=== PATIENT | female | born 1980 | race Caucasian/White ===

== ENCOUNTER 2016-07-11 22:12 | Emergency (ER) | payer MEDICAID ==
[~2016-07-11] VITALS: Ht 154.9 cm; Wt 77.0 kg
[~2016-07-11 22:12] MED LIST: ALBU2SYR PO; ALBU6.7H IH; BECL8.7A6 INH
[2016-07-11] MEDS ORDERED: HYDROCODONE/ACETAMINOPHEN 5/325MG TABLET PO ONE (22:45)
[2016-07-11] MEDS ORDERED: IPRATROPIUM/ALBUTEROL 0.5-3(2.5)MG/3ML NEB HHN ONE (22:45)
[2016-07-11] MEDS ORDERED: SODIUM CHLORIDE 0.9% 500 ML IV ONE (22:55)
[2016-07-11] MEDS ORDERED: KETOROLAC 30MG/ML VIAL IV ONE (23:00)
[2016-07-12 00:04] LABS: CREATINE KINASE 183 IU/L (26-192); INDEX HEMOLYSI 1 (1-3); TROPONIN I < 0.02 ng/mL (0.00-0.04)
[2016-07-12 00:11] LABS: B-HCG QUANTITATIVE < 1 mIU/mL (<3)
[2016-07-12 00:25] LABS: BASOPHILS % 0.5 % (0.0-2.0); EOSINOPHILS % 1.5 % (0.0-5.0); HEMATOCRIT. 41.9 % (36.0-48.0); HEMOGLOBIN. 14.4 g/dL (12.0-16.0); LYMPHOCYTES % 7.5 % (20.0-50.0); MEAN CORPUSCULAR HEMOGLOBIN 31.3 pg (28.0-32.0); MEAN CORPUSCULAR HGB CONC 34.3 g/dL (31.0-37.0); MEAN CORPUSCULAR VOLUME 91.3 fL (81.0-99.0); MEAN PLATELET VOLUME 7.3 fl (7.4-10.4); MONOCYTES % 7.1 % (2.0-8.0); NEUTROPHILS % 83.4 % (40.0-76.0); PLATELET 330 x1000/uL (130-400); RED BLOOD CELL COUNT 4.59 mill/uL (4.2-5.4); RED CELL DISTRIBUTION WIDTH 12.7 % (11.6-14.6); WHITE BLOOD COUNT 11.8 x1000/uL (4.5-11.0)
[2016-07-12 00:40] LABS: ALANINE AMINOTRANSFERASE 31 IU/L (13-61); ALBUMIN 3.7 g/dL (3.4-5.0); ANION GAP 14; CALCIUM 8.2 mg/dL (8.5-10.1); CARBON DIOXIDE 21 mEq/L (21-32); CHLORIDE 109 mEq/L (98-107); INDEX HEMOLYSI 1 (1-3); INDEX ICTERIC 1 (1-4); INDEX LIPEMIC 1 (1-3); UREA NITROGEN BLOOD 13 mg/dL (7-21); eGFR > 60 mL/min (>60)
[2016-07-12 00:44] LABS: CLARITY URINE CLOUDY (CLEAR); COLOR URINE DARK YELLOW (YELLOW); GLUCOSE URINE NEGATIVE (NEGATIVE); KETONES URINE 3+ (NEGATIVE); LEUKOCYTE ESTERASE URINE NEGATIVE (NEGATIVE); NITRITE URINE NEGATIVE (NEGATIVE); OCCULT BLOOD URINE 2+ (NEGATIVE); PH URINE 5.5 (4.5-8.0); PROTEIN URINE 1+ (NEGATIVE); SPECIFIC GRAVITY URINE 1.041 (1.005-1.030)
[2016-07-12] MEDS ORDERED: ONDANSETRON HCL 4MG/2ML VIAL IV ONE (01:15)
[2016-07-12] MEDS ORDERED: MORPHINE SULFATE 4 MG/ML CPJ (NOT FOR IM USE) IV ONE (01:15)
[2016-07-12] MEDS ORDERED: HYDROCODONE/ACETAMINOPHEN 10/325MG TABLET PO ONE (03:45)
[2016-07-12] MEDS ORDERED: DEXAMETHASONE 10MG/ML 1ML VIAL IV ONE (03:45)
[2016-07-12 03:47] LABS: SQUAMOUS EPITHELIAL CELL URINE 1+ /lpf (RARE/1+)
[2016-07-12 03:48] LABS: WBC URINE 0-2 /hpf (0-2)
[2016-07-12 03:49] LABS: CREATINE KINASE 205 IU/L (26-192); INDEX HEMOLYSI 1 (1-3)
[2016-07-12 03:49] LABS: BACTERIA URINE TRACE
[2016-07-12 05:31] VITALS: BP 111/64
== END 2016-07-12 05:34 | disposition home or self-care (01) ==
LOC: ER 22:13
DX: T79.6XXA Traumatic ischemia of muscle, initial encounter (principal); S86.911A Strain of unspecified muscle(s) and tendon(s) at lower leg level, right leg, initial encounter; J45.909 Unspecified asthma, uncomplicated; Z90.49 Acquired absence of other specified parts of digestive tract; X58.XXXA Exposure to other specified factors, initial encounter; Y93.89 Activity, other specified; Y99.8 Other external cause status; Y92.89 Other specified places as the place of occurrence of the external cause
CPT/HCPCS: 36415; 73562; 80053; 81001; 82550; 84484; 84702; 85025; 93971; 94640; 96361; 96374; 96375; 99285; J1100; J1885; J2270; J2405; J7040; L1830; Z7610; J7620

== ENCOUNTER 2025-02-15 04:18 | Inpatient (IN) | payer MEDICAID ==
[~2025-02-15] VITALS: Ht 154.9 cm; Wt 83.9 kg
[~2025-02-15 04:18] MED LIST changes: +ALBU05 NEB; -ALBU2SYR PO; -ALBU6.7H IH; +ATOR10TA PO; -BECL8.7A6 INH; +FAMO20TA8 MT; +FLUT1DIS6 IH; +MONT-46 PO; +P20 PO
[2025-02-15 04:51] LABS: BASOPHILS % 0.6 % (0.0-2.0); EOSINOPHILS % 4.4 % (0.0-5.0); HEMATOCRIT. 42.3 % (36.0-48.0); HEMOGLOBIN. 14.0 g/dL (12.0-16.0); LYMPHOCYTES % 49.2 % (20.0-50.0); MEAN PLATELET VOLUME 7.4 fl (7.4-10.4); MONOCYTES % 6.0 % (2.0-8.0); NEUTROPHILS % 39.8 % (40.0-76.0); PLATELET 343 x1000/uL (130-400); RED BLOOD CELL COUNT 4.49 mill/uL (4.2-5.4); RED CELL DISTRIBUTION WIDTH 12.7 % (11.6-14.6)
[2025-02-15] MEDS: METHYLPREDNISOLONE SOD SUCC 125MG/2ML (ACT-O-VIAL) IV ONE (04:52)
[2025-02-15] MEDS: MAGNESIUM 2 G PREMIX 50 ML IV ONE (04:53)
[2025-02-15 05:03] LABS: CREATININE 0.7 mg/dL (0.6-1.0)
[2025-02-15 05:04] LABS: PROTEIN TOTAL 6.7 g/dL (6.0-8.3); TROPONIN I HIGH SENSITIVITY < 4 ng/L (3.0-34); UREA NITROGEN BLOOD 7 mg/dL (9-23)
[2025-02-15 05:05] LABS: ASPARTATE AMINOTRANSFERASE 18 IU/L (<34)
[2025-02-15 05:06] LABS: BILIRUBIN DIRECT < 0.1 mg/dL (<=3.0); BILIRUBIN TOTAL 0.4 mg/dL (0.1-1.0)
[2025-02-15 06:25] VITALS: PULSE 76; RESP 18; O2SAT 100
[2025-02-15] MEDS: ALBUTEROL (0.083%) 2.5MG/3ML NEB HHN SCH (06:25)
[2025-02-15] MEDS: IPRATROPIUM BROMIDE (0.02%) 0.5MG/2.5ML NEB HHN SCH (06:26)
[2025-02-15] MEDS ORDERED: MAGNESIUM/ALUMINUM HYDROXIDE/SIMETHICONE 30ML UDC PO PRN (09:00)
[2025-02-15] MEDS ORDERED: HYDROCODONE/ACETAMINOPHEN 5/325MG TABLET PO PRN (09:00)
[2025-02-15] MEDS ORDERED: CLONIDINE 0.1MG TABLET PO PRN (09:00)
[2025-02-15] MEDS ORDERED: ONDANSETRON HCL 4MG/2ML INJ IV PRN (09:00)
[2025-02-15] MEDS ORDERED: NALOXONE HCL 0.4MG/ML VIAL IV PRN (09:15)
[2025-02-15] MEDS: ENOXAPARIN 40MG/0.4ML SYR SUBCUT SCH (10:21)
[2025-02-15] MEDS: PANTOPRAZOLE SODIUM 40 MG/VIAL IV SCH (10:21)
[2025-02-15] MEDS: IPRATROPIUM/ALBUTEROL 0.5-3(2.5)MG/3ML NEB NEB SCH (10:32)
[2025-02-15 10:34] VITALS: PULSE 95; RESP 16; O2SAT 98
[2025-02-15] MEDS: METHYLPREDNISOLONE SOD SUCC 40MG/ML (ACT-O-VIAL) IV SCH (11:04)
[2025-02-15 13:00] VITALS: BP 139/85; PULSE 106; RESP 18; TEMP 37.2; TEMP 37.252; O2SAT 95
[2025-02-15] MEDS ORDERED: SEMA0.258 SUBCUT (14:21)
[2025-02-15 16:00] VITALS: BP 122/82; PULSE 108; RESP 20; TEMP 38.2; O2SAT 97
[2025-02-15] MEDS: ACETAMINOPHEN 325MG TABLET PO PRN (17:50)
[2025-02-15 18:32] LABS: *AMPHETAMINES SCREEN URINE NEGATIVE (NEGATIVE); *BARBITURATES SCREEN URINE NEGATIVE (NEGATIVE); *BENZODIAZEPINES SCREEN URINE NEGATIVE (NEGATIVE); *COCAINE SCREEN URINE NEGATIVE (NEGATIVE); CANNABINOID URINE SCREEN PRESUMPTIVE POSITIVE (NEGATIVE); ECSTASY MDMA SCREEN URINE NEGATIVE (NEGATIVE); METHADONE URINE SCREEN NEGATIVE (NEGATIVE); OPIATES URINE SCREEN NEGATIVE (NEGATIVE); PHENCYCLIDINE URINE SCREEN NEGATIVE (NEGATIVE)
[2025-02-15 19:00] LABS: TROPONIN I HIGH SENSITIVITY < 4 ng/L (3.0-34)
[2025-02-15 20:00] VITALS: BP 140/82; PULSE 106; RESP 20; TEMP 37.2; O2SAT 98
[2025-02-15 20:47] LABS: COLOR URINE YELLOW (YELLOW); GLUCOSE URINE 1+ (NEGATIVE); KETONES URINE TRACE (NEGATIVE); LEUKOCYTE ESTERASE URINE NEGATIVE (NEGATIVE); NITRITE URINE NEGATIVE (NEGATIVE); OCCULT BLOOD URINE 1+ (NEGATIVE); PH URINE 5.5 (4.5-8.0); PROTEIN URINE NEGATIVE (NEGATIVE); SPECIFIC GRAVITY URINE 1.024 (1.005-1.030); UROBILINOGEN URINE 0.2 E.U./dL (0.2-1.0)
[2025-02-15] MEDS ORDERED: ZOLPIDEM TARTRATE 5MG TABLET PO PRN (21:00)
[2025-02-15 21:11] LABS: CLARITY URINE SL HAZY (CLEAR)
[2025-02-15 21:12] LABS: BACTERIA URINE 1+; RBC URINE 0-2 /hpf (0-2); SQUAMOUS EPITHELIAL CELL URINE 1+ /lpf (RARE/1+); WBC URINE 0-2 /hpf (0-2)
[2025-02-16] VITALS (12 sets, daily range): BP systolic 106–139; BP diastolic 60–89; PULSE 82–106; RESP 16–20; TEMP 36.5–36.8; O2SAT 90–100
[2025-02-16 01:18] LABS: TROPONIN I HIGH SENSITIVITY < 4 ng/L (3.0-34)
[2025-02-16 10:56] LABS: HEMATOCRIT. 40.7 % (36.0-48.0); HEMOGLOBIN. 13.6 g/dL (12.0-16.0); MEAN PLATELET VOLUME 7.6 fl (7.4-10.4); PLATELET 397 x1000/uL (130-400); RED BLOOD CELL COUNT 4.35 mill/uL (4.2-5.4); RED CELL DISTRIBUTION WIDTH 13.1 % (11.6-14.6)
[2025-02-16 11:00] LABS: CREATININE 0.6 mg/dL (0.6-1.0); UREA NITROGEN BLOOD 7 mg/dL (9-23)
[2025-02-16] MEDS ORDERED: MONT-46 PO (17:49)
[2025-02-16] MEDS ORDERED: ALBU05 NEB (17:49)
[2025-02-16] MEDS ORDERED: ALBU18HF2 IH (17:49)
[2025-02-16] MEDS ORDERED: METH4TAB95 MT (17:49)
[2025-02-17] VITALS (12 sets, daily range): BP systolic 100–149; BP diastolic 51–94; PULSE 80–120; RESP 16–19; TEMP 36.3–36.9; O2SAT 95–99
[2025-02-17 07:47] LABS: CREATININE 0.7 mg/dL (0.6-1.0); UREA NITROGEN BLOOD 13 mg/dL (9-23)
[2025-02-17 07:48] LABS: HEMATOCRIT. 40.7 % (36.0-48.0); HEMOGLOBIN. 13.7 g/dL (12.0-16.0); MEAN PLATELET VOLUME 7.5 fl (7.4-10.4); PLATELET 368 x1000/uL (130-400); RED BLOOD CELL COUNT 4.34 mill/uL (4.2-5.4); RED CELL DISTRIBUTION WIDTH 13.0 % (11.6-14.6)
[2025-02-17] MEDS: SODIUM CHLORIDE 0.9% 1,000 ML IV SCH (11:05)
[2025-02-17 12:29] LABS: HCG SCREEN NEGATIVE
[2025-02-17 13:29] LABS: LYMPHOCYTES % MANUAL 11.0 % (20.0-60.0); MONOCYTES % MANUAL 6.0 % (2.0-8.0); NEUTROPHILS % MANUAL 83.0 % (45.0-75.0); PLATELET ESTIMATE NORMAL
[2025-02-17] MEDS ORDERED: IOHEXOL-350 100 ML BOTTLE ONE (14:47)
[2025-02-17 18:21] LABS: LYMPHOCYTES % MANUAL 8.0 % (20.0-60.0); MONOCYTES % MANUAL 2.0 % (2.0-8.0); NEUTROPHILS % MANUAL 90.0 % (45.0-75.0); PLATELET ESTIMATE NORMAL
[2025-02-18] VITALS (9 sets, daily range): BP systolic 106–136; BP diastolic 61–91; PULSE 77–110; RESP 16–20; TEMP 36.4–36.8; O2SAT 95–98
[2025-02-18] MEDS: IPRATROPIUM BROMIDE (0.02%) 0.5MG/2.5ML NEB HHN SCH (00:35)
[2025-02-18 07:36] LABS: BASOPHILS % 0.0 % (0.0-2.0); EOSINOPHILS % 0.0 % (0.0-5.0); HEMATOCRIT. 39.8 % (36.0-48.0); HEMOGLOBIN. 13.6 g/dL (12.0-16.0); LYMPHOCYTES % 9.2 % (20.0-50.0); MEAN PLATELET VOLUME 7.1 fl (7.4-10.4); MONOCYTES % 3.8 % (2.0-8.0); NEUTROPHILS % 87.0 % (40.0-76.0); PLATELET 350 x1000/uL (130-400); RED BLOOD CELL COUNT 4.28 mill/uL (4.2-5.4); RED CELL DISTRIBUTION WIDTH 12.8 % (11.6-14.6)
[2025-02-18 07:59] LABS: CREATININE 0.6 mg/dL (0.6-1.0); UREA NITROGEN BLOOD 10 mg/dL (9-23)
== END 2025-02-18 17:47 | disposition home or self-care (01) | DRG 141 ==
LOC: ER 04:18 → 7WST 05:13 → EDBEDREQ 05:19 → EDBEDREQTM 05:19 → ENRESERV 12:21
PROVIDERS: ADMIT Internal Medicine; ATTEND Internal Medicine
DX: J45.901 Unspecified asthma with (acute) exacerbation (principal); J96.91 Respiratory failure, unspecified with hypoxia; E87.6 Hypokalemia; F41.9 Anxiety disorder, unspecified
CPT/HCPCS: 36415; 71045; 71275; 80048; 80076; 80305; 81003; 83880; 84443; 84484; 84703; 85025; 93005; 93306; 93970; 94003; 94070; 94640; 94664; 96365; 96374; 98960; 99291; A4606; A4615; J1650; J2470; J2919; J3475; J7030; Q9967